=== PATIENT | female | born 1955 | race African-American/Black ===

== ENCOUNTER → 2017-09-10 | Outpatient (CLI) | payer BC ==
[~2017-09-10] MED LIST: ADULT LOW DOSE81 MG PO; ALDACTONE50 MG PO; BYSTOLIC 5 MG5 M1 PO; FISHOIL; K-DUR10 ME1 PO; LEVAQUIN 750 M750 MG PO; LIPITOR40 MG PO; MEDROLDOSEPACK PO; NORCO 5-325 TA1 EACH PO; PHENERGAN 25 MG25 M1 PO; PROTONIX40 M2 PO; QUINAPRIL 20 MG20 MG PO; TESSALON PERLE100 MG PO; VENTOLIN HFA 1818 GM INH; ZOFRAN ODT4 MG PO; ZPAK PO
== END ==
LOC: ULTRA 06:12
DX: D25.9 Leiomyoma of uterus, unspecified (principal); N83.202 Unspecified ovarian cyst, left side

== ENCOUNTER → 2017-12-17 | Outpatient (CLI) | payer BC | LOC: RAD 11:04 | DX: R91.8 Other nonspecific abnormal finding of lung field (principal); R04.2 Hemoptysis; F17.200 Nicotine dependence, unspecified, uncomplicated ==

== ENCOUNTER → 2018-02-10 | Outpatient (CLI) | payer BC ==
--- NOTE | ~2018-02-10 | O ---
[facility] [place] [address] OPERATIVE REPORT Name: ALEJANDRO POPE Room #: REG [facility].#: [id number] Admission: 02/10/18 Attend Phys: Bebeto Langston MD Discharge: Date of : 57 Report #: [id number] THIS REPORT FOR: //name// CC: Caroline Langston DATE OF SERVICE: 02/10/2018 CLINICAL HISTORY: A 62-year-old female with a right lower lobe lung mass. A diagnostic bronchoscopy was performed. POSTOPERATIVE DIAGNOSES: Normal airways. DESCRIPTION OF PROCEDURE: Following obtained consent and risks and benefits have been explained to the patient, which include infection, bleeding, pneumothorax, procedure performed in the endoscopy suite. The patient received 2% aerosolized lidocaine. 2% and 1% lidocaine was also used for the upper airways. She also received total 4 mg of Versed IV push along with fentanyl 75 mg IV push. Then, a flexible fiberoptic bronchoscope was then introduced through the left naris without difficulty. The epiglottis was normal. The vocal cords were grossly unremarkable other than membranous tissue along the left vocal cord. Both vocal cords function normally. Trachea was unremarkable. Kizzy was normal. Left mainstem bronchus, left upper lobe and left lower lobe was normal. Right mainstem bronchus, right upper lobe, right middle lobe and right lower lobe was unremarkable. Bronchial lavage was performed at the proximal and posterior basal segment, medial basal segment of the right lower lobe. We had approximately 10 mL of bronchial lavage fluid return. Approximately, 6 aliquots of 20 mL saline were used for bronchial lavage. Otherwise, the patient tolerated the procedure well. Vital signs and saturation throughout the study were within normal range. No complications noted. The bronchial lavage specimen will be sent for cytology. Findings were discussed with the patient's . The patient's note that he believes she was told she had a chronic lung nodule many years ago. This will be verified with the patient when she will return to the office. <ELECTRONICALLY SIGNED> By: Bebeto Langston MD 02/15/18 1935 1510 1633 Bebeto Langston MD /nt
--- NOTE | ~2018-02-10 | PATH ---
[facility] [address] [place] [address] PATHOLOGY RPT PROCEDURE Name: ALEJANDRO POPE Room #: REG [facility].#: [id number] Admission: 02/10/18 Date of : 57 Discharge: Report #: [id number] Path Case #: [id number] Note [facility] Accession Number: [id number] TESTS RESULT FLAG UNITS REF RANGE LAB Clinician Provided Cytology Information No. of containers..01 Other (Miscellaneous) Source: RLL BAL DIAGNOSIS: RLL BAL NEGATIVE FOR MALIGNANT CELLS. NORMAL BRONCHIAL CELLS AND MACROPHAGES ARE PRESENT. PULMONARY MACROPHAGES (DUST CELLS) ARE PRESENT. THIS INTERPRETATION INCLUDES EVALUATION OF A CELL BLOCK. Signed out by: Maddie Saravia MD, Pathologist NPI- [id number] Performed by: Saeid Carlin, Senior Drupal Developer ([facility]) Gross description: 01 13ML, COLORLESS, CLEAR /LCS FLAG LEGEND: L-Low Normal,H-High Normal,LL-Alert Low,HH-Alert High <-Panic Low,>-Panic High,A-Abnormal,AA-Critical Abnormal Performed at: [address] [place] [address] Macario Acosta MD, [address] [address] Maddie Saravia MD, Specimen Comment: A courtesy copy of this report has been sent to Specimen Comment: [phone]. Specimen Comment: Report sent to DR BUTTERFIELD Specimen Comment: A duplicate report has been generated due to demographic updates. Performed at: [address], [place], [place] [id number] MD Macario Acosta MD Phone: [phone]
== END | disposition home or self-care (01) ==
LOC: CATH 07:54
DX: R91.8 Other nonspecific abnormal finding of lung field (principal); Z87.01 Personal history of pneumonia (recurrent); Z79.82 Long term (current) use of aspirin; Z79.899 Other long term (current) drug therapy; Z88.2 Allergy status to sulfonamides

== ENCOUNTER → 2018-03-15 | Outpatient (CLI) | payer BC | LOC: PET 14:17 | DX: R91.8 Other nonspecific abnormal finding of lung field (principal) ==

== ENCOUNTER → 2020-06-04 | Outpatient (CLI) | payer BC | LOC: RAD 11:19 | PROVIDERS: ATTEND Internal Medicine Pulmonary Disease | DX: J44.9 Chronic obstructive pulmonary disease, unspecified (principal); R91.8 Other nonspecific abnormal finding of lung field ==

== ENCOUNTER → 2020-06-15 | Outpatient (CLI) | payer BC ==
[~2020-06-15] MED LIST changes: +BENICAR40 MG PO; +PRAVASTATIN SOD40 MG PO; +VITAMIN D31250 MC1 PO
== END ==
LOC: SJCVCIMAG 07:46
PROVIDERS: ATTEND Internal Medicine Cardiovascular Disease
DX: I65.23 Occlusion and stenosis of bilateral carotid arteries (principal); R00.0 Tachycardia, unspecified; I49.3 Ventricular premature depolarization; I49.01 Ventricular fibrillation; I25.10 Atherosclerotic heart disease of native coronary artery without angina pectoris; F17.200 Nicotine dependence, unspecified, uncomplicated

== ENCOUNTER → 2020-06-20 | Outpatient (CLI) | payer BC ==
[~2020-06-20] VITALS: Ht 170.2 cm; Wt 59.0 kg
[2020-06-20 07:07] VITALS: BP 133/57
[2020-06-20 07:23] LABS: HEMOGLOBIN 13.9 gm/dL (12.0-15.0); MCH 31.7 pg (26.0-34.0); MCHC 33.1 g/dL (28.0-37.0); MCV 95.7 fL (80.0-100.0); RBC 4.39 mil/uL (4.20-5.00); RDW 13.7 % (10.5-14.5); WBC 5.5 thou/uL (4.0-11.0)
--- NOTE | 2020-06-20 07:28 | EKG ---
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1955 Requested By: Nicholas De La Torre Order Number: [id number] : James Benedict Measurements Intervals [place] Rate: 53 P: 47 [place]: 184 QRS: 42 QRSD: 98 T: 53 QT: 474 QTc: 446 Interpretive Statements Sinus rhythm Probable left ventricular hypertrophy Compared to ECG 10/21/2014 09:39:04 Sinus bradycardia no longer present Poor R-wave progression no longer present Electronically Signed On 06-20-2020 7:27:51 SCHOOL PSYCHOLOGIST ASSISTANT by James Benedict [email or web address] <ELECTRONICALLY SIGNED> By: James Benedict MD, [facility] 06/20/20726 0 0 James Beneidct MD, [facility] /EPI
[2020-06-20 08:03] LABS: CALCIUM 9.3 mg/dL (8.5-10.1); POTASSIUM 3.8 mmol/L (3.5-5.1)
--- NOTE | 2020-06-20 17:53 | CATHLAB ---
[place] [address] INVASIVE PROCEDURE REPORT Name: ALEJANDRO POPE Room #: REG [facility].#: [id number] Admission: 06/20/20 Attend Phys: Nicholas De La Torre MD, Discharge: Date of : 57 Report #: [id number] THIS REPORT FOR: cc: Caroline Sewell MD, Nora P. MD Mancuso, Gerald M. MD [facility] ~ APPROVED REPORT Study performed: 06/20/2020 07:40:47 Patient Details Patient Status: Out-Patient Room #: The patient is a 65 year-old female Event Personnel Nicholas De La Torre Economic Manager, Natacha Ivan RN RN, Mariposa Moreno RTR ScrubEze Sherra RTR Monitor Procedures Performed Art Access - R femoral artery* Left Heart Cath w/or w/o Coronaries 1664496 [facility] Aortogram Abdominal Peripheral Angio 953737 Unilateral Extremity Angio 4809328 UEA 10285 Initial Mod Sed Same Phys/QHP Gr5y 045995 09057 Mod Sed Same Phys/QHP Ea 612490 Hemostasis w/ Mynx Indication Chest pain Procedure Narrative The Right Groin^ was infiltrated with 1% Lidocaine subcutaneous anesthesia. A PINNACLE 6FR Sheath #[id number] sheath was inserted into the RFA^. Coronary angiography was performed using coronary diagnostic catheters. The right coronary system was accessed and visualized with a JR4 catheter. The left coronary system was accessed and visualized with a JL4 catheter. The left ventricle was accessed and visualized with a PIGTAIL catheter. Left ventriculogram was performed in 30 degree projection. An aortogram of the abdominal aorta was performed. Pre-demployment femoral angiogram was performed . Closure device was deployed with a 6 Fr MYNXGRIP 6/7F #[id number]. The patient tolerated the procedure well and there were no complications associated with the procedure. There was no hematoma. Intraoperative Conscious Sedation Sedation start time: 828 Case end Time: 905 [address] [place] [address] INVASIVE PROCEDURE REPORT Name: ALEJANDRO POPE [place] Room #: [facility]#: [id number] Admission: 06/20/20 Attend Phys: Nicholas De La Torre, Discharge: Date of : 57 Report #: [id number] Fentanyl 50 mcg Versed 1 mg Fluoro Time: 2.00 minutes Dose: DAP 1424.60 cGycm2 149 mGy Contrast Type and Amount: Omnipaque 100 ml Hemodynamics The aortic pressure is 116/43 mmHg with a mean of 68 mmHg. The left ventricular pressure is 134/1 mmHg with a mean of mmHg. The left ventricular end diastolic pressure is 20 mmHg. Conclusion #1. Normal left ventricular size and systolic function EF 60% #2 abdominal aortogram normal abdominal aorta no aneurysm. Mild bilateral renal disease #3 normal left main with mild irregularity giving rise to LAD and circumflex. #4 LAD extends to the apex with diffuse irregularity and small caliber vessel at the apex. #5 circumflex OM nondominant with mild irregularities moderate distribution. #6 dominant right coronary artery with an eccentric 30% proximal lesion mid distal stent previously placed with mild in-stent restenosis and preserved but small PDA. #7 injection of the right iliofemoral system via the sheath revealing mild in-stent restenosis and previously placed long segment of iliac stent. #8 right common femoral and SFA has mild plaquing selective injection through the sheath placed in the femoral artery proximally looks to be patent to proximal three-vessel runoff. Below-knee segment not evaluated. Recommendations plan: Continue aggressive risk factor modification no indication for coronary intervention. Mild restenosis in the right coronary artery stent and mild restenosis in the right external iliac stent. Smoking cessation strongly recommended. <ELECTRONICALLY SIGNED> By: Nicholas De La Torre MD, [facility] 06/20/201752 52 52 Nicholas De La Torre MD, FACC /INF
== END | disposition home or self-care (01) ==
LOC: CATH 06:27
PROVIDERS: ATTEND Internal Medicine Cardiovascular Disease
DX: R07.89 Other chest pain (principal); I25.10 Atherosclerotic heart disease of native coronary artery without angina pectoris; E78.00 Pure hypercholesterolemia, unspecified; I10 Essential (primary) hypertension; I65.23 Occlusion and stenosis of bilateral carotid arteries; F17.210 Nicotine dependence, cigarettes, uncomplicated; Z95.5 Presence of coronary angioplasty implant and graft; Z88.1 Allergy status to other antibiotic agents; T82.855A Stenosis of coronary artery stent, initial encounter; Y83.8 Other surgical procedures as the cause of abnormal reaction of the patient, or of later complication, without mention of misadventure at the time of the procedure

== ENCOUNTER 2021-02-20 15:33 | Emergency (ER) | payer BC ==
[~2021-02-20] VITALS: Ht 170.2 cm; Wt 51.7 kg
[2021-02-20 17:27] LABS: HEMOGLOBIN 14.8 gm/dL (12.0-15.0); MCH 31.7 pg (26.0-34.0); MCHC 32.9 g/dL (28.0-37.0); MCV 96.4 fL (80.0-100.0); RBC 4.67 mil/uL (4.20-5.00); RDW 15.1 % (10.5-14.5); WBC 6.6 thou/uL (4.0-11.0)
[2021-02-20 17:39] LABS: CALCIUM 9.7 mg/dL (8.5-10.1); CREATININE 1.3 mg/dL (0.6-1.0); POTASSIUM 4.1 mmol/L (3.5-5.1)
[2021-02-20 17:42] LABS: URINE BLOOD TRACE (Negative); URINE CLARITY SL CLOUDY; URINE COLOR YELLOW; URINE GLUCOSE-RANDOM* NEGATIVE (Negative); URINE KETONES 1+ (Negative); URINE LEUKOCYTES-REFLEX NEGATIVE (Negative); URINE NITRITE-REFLEX NEGATIVE (Negative); URINE PROTEIN (DIPSTICK) NEGATIVE (Negative); URINE UROBILINOGEN >= 8.0 E.U./dl (0.2-1.0)
[2021-02-20 17:45] LABS: MAGNESIUM 1.9 mg/dL (1.8-2.4); TOTAL BILIRUBIN 0.8 mg/dL (0.2-1.0); TOTAL PROTEIN 7.9 g/dL (6.4-8.2)
[2021-02-20 18:06] LABS: SSA (PROTEIN CONFIRMATORY) NEGATIVE (Negative)
[2021-02-20 18:07] LABS: ICTOTEST (BILI CONFIRMATORY) Negative (Negative); URINE BILIRUBIN NEGATIVE (Negative)
[2021-02-20 18:16] LABS: ABSOLUTE NEUTROPHILS 1.8 thou/uL (1.4-8.2); ATYPICAL LYMPHS 14 %
[2021-02-20 18:22] LABS: PLATELET ESTIMATE 120000
[2021-02-20 18:23] LABS: LARGE PLATELETS SEVERAL
[2021-02-20 18:25] LABS: PLATELET COUNT 53 thou/uL (150-400)
[2021-02-20 19:53] VITALS: BP 141/50
--- NOTE | 2021-02-21 07:17 | EKG ---
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
== END 2021-02-20 19:53 | disposition home or self-care (01) ==
LOC: ER 15:33
PROVIDERS: Nurse Practitioner Family
DX: R63.0 Anorexia (principal); R11.2 Nausea with vomiting, unspecified; D69.6 Thrombocytopenia, unspecified; I10 Essential (primary) hypertension; F17.210 Nicotine dependence, cigarettes, uncomplicated; I25.10 Atherosclerotic heart disease of native coronary artery without angina pectoris; Z68.1 Body mass index [BMI] 19.9 or less, adult; Z79.82 Long term (current) use of aspirin; Z79.899 Other long term (current) drug therapy; Z79.891 Long term (current) use of opiate analgesic; Z88.2 Allergy status to sulfonamides

== ENCOUNTER 2021-02-23 14:12 | Emergency (ER) | payer BC ==
[~2021-02-23] VITALS: Ht 170.2 cm; Wt 49.9 kg
[2021-02-23 14:49] LABS: ABSOLUTE NEUTROPHILS 2.2 thou/uL (1.4-8.2); BASOPHILS 0.8 % (0.0-2.0); EOSINOPHILS 1.2 % (0.0-3.0); HEMATOCRIT 45.1 % (37.0-47.0); HEMOGLOBIN 15.1 gm/dL (12.0-15.0); LYMPHOCYTES 55.8 % (24.0-44.0); MCH 31.6 pg (26.0-34.0); MCHC 33.5 g/dL (28.0-37.0); MCV 94.2 fL (80.0-100.0); MONOCYTES 4.7 % (1.0-8.0); POLYS 37.5 % (36.0-66.0); RBC 4.79 mil/uL (4.20-5.00); RDW 14.3 % (10.5-14.5)
[2021-02-23 14:58] LABS: CALCIUM 9.9 mg/dL (8.5-10.1); CREATININE 1.1 mg/dL (0.6-1.0); POTASSIUM 3.7 mmol/L (3.5-5.1)
[2021-02-23 15:04] LABS: DIRECT BILIRUBIN 0.3 mg/dL (<0.1-0.2); TOTAL BILIRUBIN 1.1 mg/dL (0.2-1.0); TOTAL PROTEIN 8.1 g/dL (6.4-8.2)
[2021-02-23 15:49] LABS: PLATELET COUNT 104 thou/uL (150-400); PLATELET ESTIMATE DECREASED
[2021-02-23 15:50] LABS: LARGE PLATELETS SEVERAL
[2021-02-23] MEDS ORDERED: ONDANSETRON ODT4 MG PO (19:10)
[2021-02-23] MEDS ORDERED: PROMS25 WY RECTAL (19:10)
[2021-02-23] MEDS ORDERED: BACTRIM DS TAB1 EACH PO (19:12)
[2021-02-23] MEDS ORDERED: CEPHALEXIN500 MG PO (19:21)
[2021-02-24 05:31] VITALS: BP 132/70
--- NOTE | 2021-02-26 07:27 | EKG ---
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
== END 2021-02-23 21:30 | disposition home or self-care (01) ==
LOC: ER 14:12
PROVIDERS: Emergency Medicine
DX: R63.4 Abnormal weight loss (principal); R11.2 Nausea with vomiting, unspecified; R61 Generalized hyperhidrosis; F17.210 Nicotine dependence, cigarettes, uncomplicated; Z88.2 Allergy status to sulfonamides